=== PATIENT | female | born 1975 | race Caucasian/White ===

== ENCOUNTER → 2016-11-30 | Outpatient (CLI) | payer BC ==
[~2016-11-30] MED LIST: ADVAIR IH; CIPRO 250MG TA250 MG PO; COLACE 100100 MG/CAP PO; LOESTRIN 21 1.51 TAB PO; MOTRIN 600600 MG/TAB PO; NYSTATIN 5500 MU/TAB PO; SINGULAIR; SINGULAIR10 MG PO; TAMIFLU30 MG PO; ZOFRAN4 M1 PO
== END ==
LOC: MC.RAD 13:40
DX: Z12.31 Encounter for screening mammogram for malignant neoplasm of breast (principal)

== ENCOUNTER → 2017-01-10 | Outpatient (CLI) | payer BC | LOC: COL.RAD 12:45 | DX: R10.31 Right lower quadrant pain (principal); Z98.890 Other specified postprocedural states ==

== ENCOUNTER 2017-05-11 20:23 | Emergency (ER) | payer BC ==
[2007-06-12 20:20] VITALS: BP 102/68
[~2017-05-11] VITALS: Ht 162.6 cm; Wt 56.8 kg
[~2017-05-11 20:23] MED LIST changes: -SINGULAIR; +SINGULAIR 110 MG/TAB PO
[2017-05-11 20:25] VITALS: BP 122/71
[2017-05-11] MEDS ORDERED: ALLEGRA ALLERG180 MG PO (20:29)
[2017-05-11 22:24] LABS: INFLUENZA A POSITIVE; INFLUENZA B NEGATIVE
[2017-05-11] MEDS ORDERED: TAMIFLU 75MG75 MG PO (22:51)
[2017-05-11 23:02] VITALS: PULSE 110; TEMP 100
== END 2017-05-11 23:03 | disposition home or self-care (01) ==
LOC: COL.ER 20:23
PROVIDERS: Physician Assistant
DX: J09.X2 Influenza due to identified novel influenza A virus with other respiratory manifestations (principal); J45.909 Unspecified asthma, uncomplicated

== ENCOUNTER → 2017-12-25 | Outpatient (CLI) | payer BC ==
[~2017-12-25] MED LIST changes: +ALLEGRA ALLERG180 MG PO; +TAMIFLU 75MG75 MG PO
== END ==
LOC: MC.RAD 13:59
DX: Z12.31 Encounter for screening mammogram for malignant neoplasm of breast (principal)

== ENCOUNTER → 2019-01-06 | Outpatient (CLI) | payer BC | LOC: MC.RAD 14:30 | DX: Z12.31 Encounter for screening mammogram for malignant neoplasm of breast (principal) ==

== ENCOUNTER → 2020-01-16 | Outpatient (CLI) | payer BC | LOC: MC.RAD 01-08 09:00 | DX: Z12.31 Encounter for screening mammogram for malignant neoplasm of breast (principal) ==

== ENCOUNTER → 2021-01-18 | Outpatient (CLI) | payer BC | LOC: MC.RAD 13:30 | DX: Z12.31 Encounter for screening mammogram for malignant neoplasm of breast (principal) ==

== ENCOUNTER → 2021-02-09 | Outpatient (CLI) | payer BC | LOC: COL.LAB 11:27 | DX: J31.0 Chronic rhinitis (principal); R06.00 Dyspnea, unspecified; R19.7 Diarrhea, unspecified; Z87.2 Personal history of diseases of the skin and subcutaneous tissue ==

== ENCOUNTER → 2021-02-10 | Outpatient (CLI) | payer BC | LOC: COL.LAB 09:52 | DX: J31.0 Chronic rhinitis (principal); R19.7 Diarrhea, unspecified; R06.00 Dyspnea, unspecified; Z87.2 Personal history of diseases of the skin and subcutaneous tissue ==

== ENCOUNTER → 2021-02-14 | Outpatient (CLI) | payer BC | LOC: COL.LAB 08:51 | DX: R06.00 Dyspnea, unspecified (principal); J31.0 Chronic rhinitis; R19.7 Diarrhea, unspecified; Z87.2 Personal history of diseases of the skin and subcutaneous tissue ==

== ENCOUNTER → 2022-01-19 | Outpatient (CLI) | payer BC | LOC: MC.RAD 08:30 | DX: Z12.31 Encounter for screening mammogram for malignant neoplasm of breast (principal) ==

== ENCOUNTER → 2023-06-19 | Outpatient (CLI) | payer BC | LOC: COL.RAD 17:08 | DX: R05.9 Cough, unspecified (principal) ==

== ENCOUNTER → 2023-07-11 | Outpatient (CLI) | payer BC ==
[~2023-07-11] MED LIST changes: +Albuterol 0.083% Neb Soln 2.5 MG/3 ML UD IH ONE
== END ==
LOC: COL.CARD 12:09
DX: R05.9 Cough, unspecified (principal)

== ENCOUNTER → 2023-07-16 | Outpatient (CLI) | payer BC ==
[~2023-07-16] MED LIST changes: -Albuterol 0.083% Neb Soln 2.5 MG/3 ML UD IH ONE
== END ==
LOC: COL.CARD 10:09
DX: R05.9 Cough, unspecified (principal)
CPT/HCPCS: J7674

== ENCOUNTER → 2024-03-26 | Outpatient (CLI) | payer BC | LOC: MC.RAD 09:25 | DX: Z12.31 Encounter for screening mammogram for malignant neoplasm of breast (principal); N95.1 Menopausal and female climacteric states ==

== ENCOUNTER → 2024-04-17 | Outpatient (CLI) | payer BC | LOC: COL.RAD 14:27 | DX: K59.4 Anal spasm (principal) ==